=== PATIENT | male | born 1995 | race Caucasian/White ===

== ENCOUNTER 2019-11-08 | Emergency (ER) | payer OTHER ==
[~2019-11-08] VITALS: Ht 172.7 cm; Wt 150.0 kg
[2019-11-08 00:05] VITALS: BP 150/87
== END 2019-11-08 00:38 ==
LOC: ER 00:02
DX: Z02.89 Encounter for other administrative examinations (principal); Z72.89 Other problems related to lifestyle
CPT/HCPCS: 99283